=== PATIENT | female | born 1995 | race Caucasian/White ===

== ENCOUNTER 2021-02-18 14:53 | Emergency (ER) | payer BC, SELFPAY ==
[2021-02-18 15:00] VITALS: BP 108/71; PULSE 57; RESP 18; TEMP 36.9; O2SAT 99
--- NOTE | 2021-02-18 15:20 | ED.GENADUL_ITS ---
Discharge Plan Disposition Patient Disposition: HOME Condition: Improving Discharge Details Clinical Impression: Cellulitis of finger, left Primary Care Provider: Unknown,Unknown ED Provider: Jai Melchor Home Meds and New Rx's Prescriptions: New amoxicillin-pot clavulanate 875-125 mg tablet 1 tab PO BID 10 Days Qty: 20 RF: 0 Discharge Instructions Instructions: Cellulitis (ED) Additional Instructions: Home to rest today. Take Augmentin as prescribed. As we discussed I recommend you take an [id number] probiotic once daily during the course of antibiotics. Elevate above the level of the heart. Return to the ER for any acute concerns. Medical Decision Making Healthy 25-year-old female presents with left long finger cellulitis and swelling today. She had been stung by a hymenoptera days before but had resolution of the symptoms initially and then after [place] noticed erythema beginning today after having previously improved. It does seem consistent with a acute cellulitis of the left long finger. Patient had taken a single oral Keflex at home, but I will have her begin a prescription of Augmentin. She understands homecare as well as indications to return for reevaluation. HPI General Mode of arrival: ambulatory . Date/Time Provider Initiated Documentation: 02/18/21 14:55 . Limitations to Documentation: no limitations . Information obtained by: patient . History of Present Illness 25 year old F presents to the emergency department with the chief complaint of Left long finger cellulitis, described as mild, Quality is described as dull and constant, and is localized to the left and upper extremity. Patient reports no radiation. Patient started experiencing this hour(s) and it has been constant. No relieving factors improve symptom(s), No exacerbating factors reported . Patient notes denies fever/chills. Patient did receive the following treatments prior to arrival, other (Keflex x1 at home) Related Data Home Medications Medication Instructions Recorded Confirmed amoxicillin-pot clavulanate 1 tab PO BID 10 Days #20 tab 02/18/21 Previous Rx's Medication Instructions Recorded amoxicillin-pot clavulanate 1 tab PO BID 10 Days #20 tab 02/18/21 Allergies Allergy/AdvReac Type Severity Reaction Status Date / Time No Known Allergies Allergy Unverified 02/18/21 15:04 General Stated Complaint: RashLesion LUIIG: 3 Review of Systems Narrative: No other complaints. Otherwise healthy. PFSH Social History Smoking/Tobacco Use Status: Current-Occasional Tobacco Type: cigarettes Smoking risk assessment performed?: Yes Drug use: Occasionally Substance use type: marijuana Do you feel safe at home: Yes Do you feel safe in your relationship?: Yes Exam Narrative Exam Narrative: GEN: awake, alert, oriented 3. Pleasant, well groomed, interactive. HEAD: Normocephalic, atraumatic NECK: Full ROM, no QI, no menigismus CHEST/RESP: Nontender, clear to auscultation bilateral, no wheeze/rhonchi/rales CARDIOVASCULAR: RRR, no murmur, rub ashley. 2+ Rad pulse bilateral EXT: Full ROM, left long finger erythematous and swollen with proximal erythema to the dorsum of the hand. Neuro: Grossly normal neurologic exam, conversant, interactive. Psych: Speech fluent, thoughts congruent, affect normal Course Vital Signs Vital signs: Vital Signs Temperature 36.9 C 02/18/21 15:00 Pulse 57 L 02/18/21 15:00 Respiratory Rate 18 02/18/21 15:00 Blood Pressure 108/71 02/18/21 15:00 Pulse Oximetry 99 02/18/21 15:00 Temperature 36.9 C 02/18/21 15:00 Temperature Source Temporal Artery Scan 02/18/21 15:00 Pulse 57 L 02/18/21 15:00 Respiratory Rate 18 02/18/21 15:00 Respiratory Effort Non-Labored 02/18/21 15:05 Blood Pressure 108/71 02/18/21 15:00 Blood Pressure Position Sitting 02/18/21 15:00 Pulse Oximetry 99 02/18/21 15:00 Oxygen Delivery Method Room Air 02/18/21 15:00 Oxygen Flow Rate 0 02/18/21 15:00 Pain Level 0 02/18/21 15:00
[2021-02-18] MEDS: Amox. 875/Clav. 125, 2 TABS/BTL 1 TAB PO (15:31)
== END 2021-02-18 15:32 | disposition home or self-care (01) ==
PROVIDERS: Emergency Provider Emergency Medicine
DX: T63.441A Toxic effect of venom of bees, accidental (unintentional), initial encounter (principal); L03.012 Cellulitis of left finger
CPT/HCPCS: 99283